=== PATIENT | female | born 1990 | race Caucasian/White ===

== ENCOUNTER 2018-03-25 20:58 | Emergency (ER) | payer MEDICARE, MEDICAID ==
[~2018-03-25] VITALS: Ht 157.5 cm; Wt 63.5 kg
--- NOTE | 2018-03-25 21:00 | NUR ---
SEIZURE PADS PLACED ON PT BED
[2018-03-25 21:04] VITALS: BP 98/51
--- NOTE | 2018-03-25 21:16 | NUR ---
PATIENT RECEIVED ON VENT SETTINGS: AC, 14, 350, +5, 30%. VITALS STABLE: 100%, 67, RATE 24, CLEAR BREATH SOUNDS BUT EQUAL CHEST RISE. ALARMS ON AND AUDIBLE. TRACH PATENT AND SECURE. VENT PLUGGED INTO RED OUTLET. NO SOB OR DISTRESS. AMBU BAG AT BEDSIDE. SPUTUM COLLECTED AND SENT TO LAB.
[2018-03-25 21:18] VITALS: BP 98/51
--- NOTE | 2018-03-25 21:45 | NUR ---
PT BIB [facility] C/O HEAVY BREATHING S/P JUST PUT ON NEW VENT. RT AT BEDSIDE, ER TO [facility]Y.
--- NOTE | 2018-03-25 23:15 | NUR ---
PT IS RESTING IN BED, FATHER IS AT BEDSIDE. PT IS HYPOTENSIVE, 82/51. ER MD NOTIFIED.
--- NOTE | 2018-03-26 00:28 | NUR ---
2347- Called [facility] for patient transfer/admission. S/W TIMI Cruz MD to call back. [id number] CALLED BACK-PT TO BE TRANSFER TO [facility].
--- NOTE | 2018-03-26 01:00 | NUR ---
HAD PT'S DAD SIGN RELAESE FOR TRANSFER TO [facility]
--- NOTE | 2018-03-26 01:08 | NUR ---
PT IS IN BED, VSS. VENTILATOR OPERATING PROPERLY. PARENTS ARE NOT AT BEDSIDE AT THIS TIME. SAFETY PRECAUTIONS IN PLACE, WILL CONTINUE TO MONITOR.
--- NOTE | 2018-03-26 01:27 | NUR ---
SPOKE WITH ALISHA, NURSING SUPERVISER AT [facility]. SHE STATED THAT THE PT WOULD BE TRANSFERED TO [facility] AND ASKED FOR FIO2 SETTING ON PT'S VENT.
--- NOTE | 2018-03-26 02:10 | NUR ---
gave report to liang at [facility]
[2018-03-26] MEDS ORDERED: NACL 0.9% 1,000 ML IV ONE (02:20)
--- NOTE | 2018-03-26 02:20 | NUR ---
Patient to be transferred to [facility]. Is being transferred due to [place]. Receiving facility has accepting physician and available space. ER physician has signed transfer form. Patient or responsible alliance party has agreed to transfer and signed form. Patient belongings inventoried and will be sent with patient. Copy of nursing notes, lab reports, EKG, Physicians Orders and X-rays to be sent with patient. Report called to lauri at receiving facility. [facility] has been called for transfer. ETA is 30min.
[2018-03-26 02:21] VITALS: BP 88/52
== END 2018-03-26 02:20 | disposition short-term general hospital (02) ==
LOC: MED 20:58
DX: R06.00 Dyspnea, unspecified (principal); J45.909 Unspecified asthma, uncomplicated; Z99.11 Dependence on respirator [ventilator] status
CPT/HCPCS: 71045; 99285; J7030; Q0092

== ENCOUNTER 2019-10-04 16:13 | Emergency (ER) | payer MEDICARE, MEDICAID, SELFPAY ==
[~2019-10-04] VITALS: Ht 167.6 cm; Wt 66.2 kg
--- NOTE | 2019-10-04 16:17 | NUR ---
BIBA ALS TO BED 9
[2019-10-04 16:18] VITALS: BP 68/37
--- NOTE | 2019-10-04 16:18 | NUR ---
29 Y/O F BIBA FROM HOME. PER EMS C/C HYPERGLYCEMIA AND TACHYPNEA. PT PRESENTS WITH R/R 30 ; BLOOD SUGAR 566 ; VENT ; NON-VERBAL. PER EMS PT BEDRIDDEN DUE TO VACCINE OBTAINED YEARS AGO, UNSPECIFIED VACCINE. ALLERGIES VANCOMYCIN. HX DM,VENT,CEREBRAL PALSY. CURRENT VENT SETTINGS PROVIDED BY EMS: 300 TIDAL, 6.0 PEEP, 14 RR. SIDE RAIL X2.
--- NOTE | 2019-10-04 16:18 | NUR ---
Note undone in EDM - 10/04/19 at 1657 by MEDOF 29 Y/O F BIBA FROM HOME. PER EMS C/C HYPERGLYCEMIA AND TACHYPNEA. PT PRESENTS WITH R/R 14 ; BLOOD SUGAR 566 ; VENT ; NON-VERBAL. PER EMS PT BEDRIDDEN DUE TO VACCINE OBTAINED YEARS AGO, UNSPECIFIED VACCINE. ALLERGIES VANCOMYCIN. HX DM,VENT,CEREBRAL PALSY. CURRENT VENT SETTINGS PROVIDED BY EMS: 300 TIDAL, 6.0 PEEP, 14 RR. SIDE RAIL X2.
--- NOTE | 2019-10-04 16:20 | NUR ---
RT AT BEDSIDE
--- NOTE | 2019-10-04 16:20 | NUR ---
ERMD AT BEDSIDE
[2019-10-04] MEDS ORDERED: NACL 0.9% 2,000 ML IV SCH (16:37)
[2019-10-04] MEDS ORDERED: cefTRIAXone 1,000 MG in DEXT 5% MINI-BAG PLUS 50 ML IV ONE (16:40)
[2019-10-04] MEDS ORDERED: VANCOMYCIN 1,000 MG in DEXTROSE 5% 250 ML IV ONE (16:40)
[2019-10-04 16:47] VITALS: BP 82/33
--- NOTE | 2019-10-04 16:51 | NUR ---
RECEIVED ON VENT WITH SETTINGS CHARTED BREATH SOUNDS PRESENT BILAT DIMINISHED TRACH SITE SECURE AMBU BAG AT BEDSIDE VENT PLUGGED INTO RED OUTLET WILL CONTINUE TO MONITOR PT ON VENT
--- NOTE | 2019-10-04 16:51 | NUR ---
RAD AT BEDSIDE
[2019-10-04] MEDS ORDERED: cefTRIAXone 1,000 MG VIAL ONE (17:12)
[2019-10-04 17:19] LABS: LYMPHOCYTES # (AUTO) 2.2 K/uL (2.5-16.5); MONOCYTES # (AUTO) 0.7 K/uL (0.8-1.0)
[2019-10-04 17:21] LABS: BASOPHILS % (AUTO) 0.5 % (0.0-2.0); EOSINOPHILS % (AUTO) 0.1 % (0.0-4.0); HEMATOCRIT 47.7 % (36-48); HEMOGLOBIN 13.6 g/dL (12.0-16.0); LYMPHOCYTES % (AUTO) 22.7 % (20.5-51.1); MEAN CORPUSCULAR HEMOGLOBIN 34 pg (27-31); MEAN CORPUSCULAR HGB CONC 29 g/dL (33-37); MEAN CORPUSCULAR VOLUME 118.7 fL (80-94); MONOCYTES % (AUTO) 7.4 % (1.7-9.3); NEUTROPHILS # (AUTO) 6.8 K/uL (1.8-7.7); NEUTROPHILS % (AUTO) 69.3 % (42.2-75.2); PLATELET COUNT (AUTO) 126 K/uL (140-450); RED BLOOD CELL COUNT(AUTO) 4.02 MIL/uL (4.20-5.40); RED CELL DISTRIBUTION WIDTH 20.3 % (11.6-13.7); WHITE BLOOD COUNT (AUTO) 9.8 K/uL (4.8-10.8)
[2019-10-04] MEDS ORDERED: INSULIN REGULAR, HUMAN 100 UNIT/ML VIAL SUBQ ONE (17:50)
--- NOTE | 2019-10-04 18:07 | NUR ---
COVID SWAB GIVEN TO LAB
--- NOTE | 2019-10-04 18:07 | NUR ---
PENDING URINE, CHARGE NURSE NOTIFIED
--- NOTE | 2019-10-04 18:25 | NUR ---
ERMD NOTIFIED OF ASYSTOLE RHYTHM, PT UNRESPONSIVE, NO PULSE.
--- NOTE | 2019-10-04 18:25 | NUR ---
CPR INITIATED; CRASH CART AT BEDSIDE
--- NOTE | 2019-10-04 18:25 | NUR ---
SEE CODE SHEET
--- NOTE | 2019-10-04 19:02 | NUR ---
ERMD AT BEDSIDE, ASYSTOLE NOTED, CPR INITIATED, CRASH CART AT BEDSIDE.
--- NOTE | 2019-10-04 19:02 | NUR ---
SEE CODE SHEET
[2019-10-04] MEDS ORDERED: DOPPLER MC ONE (19:13)
[2019-10-04 19:18] LABS: PROTHROMBIN TIME 11.3 secs (10.8-13.4)
--- NOTE | 2019-10-04 19:40 | NUR ---
REPORT GIVEN TO NATHALY DE GUZMAN FOR CONTINUITY OF CARE
--- NOTE | 2019-10-04 20:00 | NUR ---
SPOKE WITH VERA FROM [facility] -- REFERENCE NUMBER PROVIDED: [id number].
--- NOTE | 2019-10-04 20:13 | NUR ---
CALL MADE TO CHEMICAL TECHNICIAN OFFICE--CHEMICAL TECHNICIAN TO CALL BACK.
--- NOTE | 2019-10-04 20:39 | NUR ---
SPO[facility]RA[facility], PER MURALI THERE ARE MULTIPLE [employer] MEMBER CASES IN [facility] PENDING AND WILL BE APPROX 5-6 HOURS BEFORE A [employer] MEMBER CAN BE IN CONTACT WITH [facility]. PER MURALI, OKAY TO RELASE BODY TO [employer] PENDING [employer] RELEASE.
--- NOTE | 2019-10-04 22:22 | NUR ---
spoke with patrol deputy sheriff Candy Ramires--body released at this time. .
--- NOTE | 2019-10-05 00:14 | NUR ---
PT LEFT FACILITY WITH HEAD SCORER FROM [facility] AT THIS TIME.
[2019-10-05 00:15] VITALS: BP 82/33
--- NOTE | 2019-10-05 02:53 | NUR ---
POST CHARTING - CALLED TO BEDSIDE Cx COMPRESSIONS WERE BEING PROVIDED STARTED ROUGHLY 18:30 PT RECOVERED AND CPR WAS STARTED AGAIN ROUGHLY 1900
--- NOTE | 2019-10-09 07:55 | NUR ---
LATE ENTRY- NORMAL SALINE 0.9% DISCONTINUED AT 1807.
--- NOTE | 2019-10-09 07:56 | NUR ---
LATE ENTRY- ROCEPHIN IVPB DISCONTINUED AT 1807.
== END 2019-10-04 19:27 | disposition expired ==
LOC: MED 16:13 → EEVIPCON 16:13 → MED 19:27
DX: R65.21 Severe sepsis with septic shock (principal); I46.9 Cardiac arrest, cause unspecified; J45.909 Unspecified asthma, uncomplicated; R73.9 Hyperglycemia, unspecified; Z98.890 Other specified postprocedural states; Z20.828 Contact with and (suspected) exposure to other viral communicable diseases
CPT/HCPCS: 36415; 71045; 83605; 83880; 85025; 85610; 85730; 87040; 93005; 99285; C1758; J0696; J1815; Q0092; U0003; 80053; 82550; J7030